=== PATIENT | male | born 1995 | race Caucasian/White ===

== ENCOUNTER → 2019-09-07 | Outpatient (CLI) | payer BC ==
[~2019-09-07] MED LIST: Veetids 500500 MG PO
[2019-09-10 10:11] LABS: CHLAMYDIA TRACHOMATIS, NAA Negative (Negative); NEISSERIA GONORRHOEAE, NAA Positive (Negative)
== END | disposition home or self-care (01) ==
LOC: LAB EV 15:21 → LAB SHORT 15:21
PROVIDERS: Physician Assistant
DX: Z72.51 High risk heterosexual behavior (principal)
CPT/HCPCS: 87070; 87077; 87185; 87205

== ENCOUNTER 2020-04-16 15:54 | Emergency (ER) | payer BC ==
[~2020-04-16] VITALS: Ht 175.3 cm; Wt 74.8 kg
== END 2020-04-16 16:34 | disposition home or self-care (01) ==
LOC: ER 15:54
DX: L23.7 Allergic contact dermatitis due to plants, except food (principal)
CPT/HCPCS: 96372; 99282; J3301

== ENCOUNTER 2021-10-30 04:31 | Inpatient (IN) | payer OTHER ==
[~2021-10-30] VITALS: Ht 177.8 cm; Wt 68.0 kg
[2021-10-30 05:02] LABS: BASOPHILS ABSOLUTE AUTO 0.05 K/mm3 (0.00-0.23); BASOPHILS PERCENT AUTO 1 % (0-2); EOSINOPHILS ABSOLUTE AUTO 0.26 K/mm3 (0.00-0.68); EOSINOPHILS PERCENT AUTO 4 % (0-6); Hematocrit 39.7 % (37.0-53.0); Hemoglobin 13.3 g/dL (13.5-17.5); IMMATURE GRAN ABSOLUTE AUTO 0.02 K/mm3 (0.00-0.10); IMMATURE GRAN PERCENT AUTO 0 % (0-1); LYMPHOCYTES ABSOLUTE AUTO 1.55 K/mm3 (0.84-5.20); LYMPHOCYTES PERCENT AUTO 24 % (21-46); MONOCYTES ABSOLUTE AUTO 0.51 K/mm3 (0.16-1.47); MONOCYTES PERCENT AUTO 8 % (4-13); Mean Corpuscular HGB 29.2 pg (26.0-34.0); Mean Corpuscular HGB Conc 33.5 g/dL (31.5-36.5); Mean Corpuscular Volume 87 fL (80-100); Mean Platelet Volume 9.7 fL (9.1-12.4); NEUTROPHILS ABSOLUTE AUTO 4.16 K/mm3 (1.96-9.15); NEUTROPHILS PERCENT AUTO 63 % (41-73); Platelet Count 257 K/mm3 (150-400); RDW Coefficient Variation 12.4 % (11.7-14.2); RDW Standard Deviation 39.8 fL (35.1-46.3); Red Blood Cell Count 4.56 M/mm3 (4.30-5.90); White Blood Cell Count 6.55 K/mm3 (4.00-11.30)
[2021-10-30 05:17] LABS: International Normalized Ratio 1.21; Prothrombin Time Results 12.5 Sec (9.7-11.5)
[2021-10-30 05:18] LABS: Albumin, Blood 3.6 g/dL (3.4-5.0); Albumin/Globulin Ratio 1.3 (0.8-1.8); Bilirubin, Total 0.5 mg/dL (0.1-1.0); Bun/Creatinine Ratio 17.9 (12.0-20.0); Calcium, Blood 8.5 mg/dL (8.5-10.1); Creatinine, Blood 0.78 mg/dL (0.60-1.20); Globulin, Blood 2.8 g/dL (2.2-4.0); Potassium, Blood 3.9 mmol/L (3.5-5.5); Total Protein, Blood 6.4 g/dL (6.4-8.2)
[2021-10-30 10:00] LABS: U Amphetamine Screen DETECTED; U Barbituate Screen Not Detected; U Benzodiazapine Screen Not Detected; U Buprenorphine Screen Not Detected; U Cannabinoids Screen Not Detected; U Cocaine Screen Not Detected; U Methadone Screen Not Detected; U Methamphetamine Screen DETECTED; U Opiates Screen DETECTED; U Oxycodone Screen Not Detected; U Phencyclidine Screen Not Detected; U Propoxyphene Screen Not Detected
[2021-10-30 11:51] LABS: SARS-Cov-2 (COVID-19) PCR, MMC NEGATIVE (NEGATIVE)
[2021-10-31] MEDS ORDERED: SULTRIDS PO (12:34)
[2021-10-31] MEDS ORDERED: ASPI81CH PO (12:34)
[2021-10-31] MEDS ORDERED: Percocet 5-3251 EACH PO (12:35)
== END 2021-10-31 17:15 | disposition home or self-care (01) | DRG 482 ==
LOC: ER 04:31 → SURS 06:59
PROVIDERS: Student in an Organized Health Care Education/Training Program; ADMIT Orthopaedic Surgery
PROC: 3E0234Z Introduction of Serum, Toxoid and Vaccine into Muscle, Percutaneous Approach (ICD-10-PCS; 2021-10-30)
PROC: 0QSC04Z Reposition Left Lower Femur with Internal Fixation Device, Open Approach (ICD-10-PCS; principal; 2021-10-30 12:30)
DX: S72.492B Other fracture of lower end of left femur, initial encounter for open fracture type I or II (principal); Z20.822 Contact with and (suspected) exposure to COVID-19; Z23 Encounter for immunization; M25.562 Pain in left knee; F15.10 Other stimulant abuse, uncomplicated; F11.10 Opioid abuse, uncomplicated; Z56.0 Unemployment, unspecified; Z88.0 Allergy status to penicillin; W34.00XA Accidental discharge from unspecified firearms or gun, initial encounter
CPT/HCPCS: 73560-LT; 73706; 80053; 85025; 85610; 85730; 86850; 86900; 86901; 90471; 90714; 93005; 93010; 94760; 96374-59; 96375-59; 96376-59; 97116; 97162; 99285-25; A9270; C1713; J0690; J1100; J1170; J2250; J2270; J2405; J2704; J3010; J3370; J7030; J7050; J7060; J7120; Q9967; U0004